=== PATIENT | male | born 1965 | race Asian ===

== ENCOUNTER 2018-09-02 19:32 | Emergency (ER) | payer OTHER, SELFPAY ==
[2018-09-02] MEDS ORDERED: Lidocaine 1% w/Epinephrine 1:100K 20 ML VIAL ONE (20:01)
[2018-09-02] MEDS ORDERED: Lidocaine 4% Cream 5 GM TUBE w/ Tegaderm ONE (20:05)
[2018-09-02] MEDS ORDERED: Bacitracin Zinc 1 Packet ONE (21:05)
== END 2018-09-02 21:12 | disposition home or self-care (01) ==
LOC: SCSER 19:32
DX: S01.01XA Laceration without foreign body of scalp, initial encounter (principal); I10 Essential (primary) hypertension; F41.9 Anxiety disorder, unspecified; Z79.899 Other long term (current) drug therapy; W22.8XXA Striking against or struck by other objects, initial encounter
CPT/HCPCS: 12002; J2001

== ENCOUNTER 2018-09-13 14:24 | Emergency (ER) | payer SELFPAY | END 2018-09-13 15:11 | disposition home or self-care (01) | LOC: SCSER 14:24 | DX: S01.01XD Laceration without foreign body of scalp, subsequent encounter (principal); I10 Essential (primary) hypertension; F41.9 Anxiety disorder, unspecified; Z79.899 Other long term (current) drug therapy; W22.8XXD Striking against or struck by other objects, subsequent encounter ==